=== PATIENT | female | born 1960 | race Caucasian/White ===

== ENCOUNTER → 2024-03-26 | Outpatient (REF) | payer OTHER ==
[~2024-03-26] MED LIST: FISH OIL; PANTOPRAZOLE PO; PANTOPRAZOLE SO40 MG PO; PENTASA; PENTASA PO; PENTASA500 MG PO; PROZAC10 MG PO; WOMEN'S DAILY1 EACH PO; XYZAL PO; Z.0.LIPITOR20 MG PO; Z.0.PROZAC20 MG PO
== END ==
LOC: DX 07:58
PROVIDERS: ATTEND Nurse Practitioner
DX: K50.10 Crohn's disease of large intestine without complications (principal)
CPT/HCPCS: 74250